=== PATIENT | female | born 1960 | race Caucasian/White ===

== ENCOUNTER 2016-12-18 12:44 | Inpatient (IN) | payer BC, OTHER ==
[~2016-12-18] VITALS: Ht 154.9 cm; Wt 78.3 kg
[2016-12-18 14:30] LABS: BASOPHILS % 0.9 % (0.0-2.0); EOSINOPHILS % 0.1 % (0.0-5.0); HEMATOCRIT. 40.8 % (36.0-48.0); HEMOGLOBIN. 13.8 g/dL (12.0-16.0); LYMPHOCYTES % 26.4 % (20.0-50.0); MEAN CORPUSCULAR VOLUME 80.1 fL (81.0-99.0); MEAN PLATELET VOLUME 8.8 fl (7.4-10.4); MONOCYTES % 5.6 % (2.0-8.0); PLATELET 356 x1000/uL (130-400); RED BLOOD CELL COUNT 5.09 mill/uL (4.2-5.4)
[2016-12-18 14:32] LABS: PROTHROMBIN TIME 10.9 sec (9.4-11.6)
[2016-12-18 14:40] LABS: CARBON DIOXIDE 24 mEq/L (21-32); CHLORIDE 103 mEq/L (98-107); TROPONIN I < 0.02 ng/mL (0.00-0.04)
[2016-12-18 15:12] LABS: HEPATITIS B SURFACE ANTIGEN NEGATIVE
[2016-12-18 15:24] LABS: CLARITY URINE CLEAR (CLEAR); COLOR URINE YELLOW (YELLOW); GLUCOSE URINE NEGATIVE (NEGATIVE); KETONES URINE 2+ (NEGATIVE); LEUKOCYTE ESTERASE URINE NEGATIVE (NEGATIVE); NITRITE URINE NEGATIVE (NEGATIVE); OCCULT BLOOD URINE NEGATIVE (NEGATIVE); PH URINE >=9.0 (4.5-8.0); PROTEIN URINE NEGATIVE (NEGATIVE); SPECIFIC GRAVITY URINE 1.016 (1.005-1.030); UROBILINOGEN URINE 0.2 E.U./dL (0.2-1.0)
[2016-12-18 15:40] LABS: HEPATITIS B CORE AB IGM NEGATIVE
[2016-12-18 15:42] LABS: HEPATITIS A AB IGM NEGATIVE (NEGATIVE)
[2016-12-18 15:53] LABS: *AMPHETAMINES SCREEN URINE NEGATIVE (NEGATIVE); *BARBITURATES SCREEN URINE NEGATIVE (NEGATIVE); *BENZODIAZEPINES SCREEN URINE NEGATIVE (NEGATIVE); *COCAINE SCREEN URINE NEGATIVE (NEGATIVE); CANNABINOID URINE SCREEN NEGATIVE (NEGATIVE); METHADONE URINE SCREEN NEGATIVE (NEGATIVE); OPIATES URINE SCREEN NEGATIVE (NEGATIVE); PHENCYCLIDINE URINE SCREEN NEGATIVE (NEGATIVE)
[2016-12-18] MEDS ORDERED: ASPIRIN 81MG TABLET PO ONE (16:15)
[2016-12-18] MEDS ORDERED: IPRATROPIUM/ALBUTEROL 0.5-3(2.5)MG/3ML NEB HHN ONE (18:00)
[2016-12-18] MEDS ORDERED: SODIUM CHLORIDE 0.9% 1,000 ML IV ONE (19:45)
[2016-12-18] MEDS ORDERED: POTASSIUM CHLORIDE 20MEQ TABLET SR PO SCH (19:45)
[2016-12-18 20:44] VITALS: BP 131/70
[2016-12-18 21:05] LABS: BETA HYDROXYBUTYRATE 0.3 mMol/L (0.0-0.3)
[2016-12-18 21:45] VITALS: BP 131/70
[2016-12-18] MEDS ORDERED: CALCIUM PO (22:38)
[2016-12-18] MEDS ORDERED: CALC0.253 PO (22:38)
[2016-12-18] MEDS ORDERED: OMEP20CA10 PO (22:38)
[2016-12-18] MEDS ORDERED: LEVO100T9 PO (22:38)
[2016-12-18] MEDS ORDERED: NAPR-681 PO (22:38)
[2016-12-18] MEDS ORDERED: DEXTROSE 50% WATER 50ML SYRINGE IV PRN (23:30)
[2016-12-18] MEDS ORDERED: ACETAMINOPHEN 325MG TABLET PO PRN (23:30)
[2016-12-18] MEDS ORDERED: MAGNESIUM/ALUMINUM HYDROXIDE/SIMETHICONE 30ML UDC PO PRN (23:30)
[2016-12-18] MEDS ORDERED: ONDANSETRON HCL 4MG/2ML VIAL IV PRN (23:30)
[2016-12-18] MEDS ORDERED: CLONIDINE 0.1MG TABLET PO PRN (23:30)
[2016-12-18] MEDS ORDERED: IPRATROPIUM/ALBUTEROL 0.5-3(2.5)MG/3ML NEB INH PRN (23:30)
[2016-12-19] VITALS (7 sets, daily range): BP systolic 101–144; BP diastolic 57–68
[2016-12-19] MEDS ORDERED: KCL 20MEQ/100ML PREMIX 100 ML IV NR (01:30)
[2016-12-19] MEDS ORDERED: MAGNESIUM 2 G PREMIX 50 ML IV NR (04:00)
[2016-12-19] MEDS: BLOOD SUGAR DIAGNOSTIC STRIP TEST SCH ×4 (05:50→23:10)
[2016-12-19] MEDS: INSULIN LISPRO 100 UNITS/ML SUBCUT SCH ×4 (08:10→21:00)
[2016-12-19] MEDS: MECLIZINE 25MG TABLET PO SCH ×2 (16:15→23:02)
[2016-12-19] MEDS: PANTOPRAZOLE SODIUM 40 MG/VIAL IV SCH (16:15)
[2016-12-19] MEDS: SODIUM CHLORIDE 0.9% 1,000 ML IV SCH (16:16)
[2016-12-19] MEDS ORDERED: FAMOTIDINE 20MG/2ML VIAL IV SCH (21:00)
[2016-12-20] VITALS: BP 104/64
[2016-12-20] MEDS: SODIUM CHLORIDE 0.9% 1,000 ML IV SCH ×2 (02:24→11:18)
[2016-12-20 04:00] VITALS: BP 106/59
[2016-12-20 06:45] LABS: BASOPHILS % 0.6 % (0.0-2.0); EOSINOPHILS % 3.6 % (0.0-5.0); HEMATOCRIT. 36.6 % (36.0-48.0); HEMOGLOBIN. 12.9 g/dL (12.0-16.0); LYMPHOCYTES % 45.2 % (20.0-50.0); MEAN CORPUSCULAR HEMOGLOBIN 28.3 pg (28.0-32.0); MEAN CORPUSCULAR VOLUME 80.5 fL (81.0-99.0); MEAN PLATELET VOLUME 8.4 fl (7.4-10.4); MONOCYTES % 7.8 % (2.0-8.0); NEUTROPHILS % 42.8 % (40.0-76.0); PLATELET 314 x1000/uL (130-400); RED BLOOD CELL COUNT 4.56 mill/uL (4.2-5.4); RED CELL DISTRIBUTION WIDTH 14.2 % (11.6-14.6)
[2016-12-20] MEDS: BLOOD SUGAR DIAGNOSTIC STRIP TEST SCH ×3 (07:02→17:28)
[2016-12-20] MEDS: INSULIN LISPRO 100 UNITS/ML SUBCUT SCH ×3 (07:29→17:31)
[2016-12-20 07:31] LABS: CARBON DIOXIDE 27 mEq/L (21-32); CHLORIDE 106 mEq/L (98-107)
[2016-12-20] MEDS: MECLIZINE 25MG TABLET PO SCH ×2 (07:36→15:13)
[2016-12-20 08:00] VITALS: BP 128/55
[2016-12-20] MEDS: CALCIUM CARBONATE 1250MG TABLET (500MG ELEMENTAL CALCIUM) PO SCH ×3 (08:19→17:29)
[2016-12-20] MEDS: PANTOPRAZOLE SODIUM 40 MG/VIAL IV SCH (08:19)
[2016-12-20] MEDS ORDERED: POTASSIUM CHLORIDE 20MEQ TABLET SR PO SCH (09:00)
[2016-12-20] MEDS ORDERED: LEVOTHYROXINE SODIUM 100MCG TABLET PO SCH (09:00)
[2016-12-20] MEDS ORDERED: CALCITRIOL 0.25MCG CAPSULE PO SCH (09:00)
[2016-12-20] MEDS ORDERED: GADOBENATE DIMEGLUMINE 529 MG/ML 10ML IV ONE (09:16)
[2016-12-20] MEDS ORDERED: CALCIUM CHLORIDE 1,000 MG in DEXT 5% WATER 90 ML IV SCH (10:00)
[2016-12-20] MEDS ORDERED: MAGNESIUM 2 G PREMIX 50 ML IV SCH (10:00)
[2016-12-20 12:00] VITALS: BP 118/63
[2016-12-20 16:00] VITALS: BP 127/67
[2016-12-20 17:44] VITALS: BP 127/67
[2016-12-21] MEDS ORDERED: PANTOPRAZOLE 40MG DR TABLET PO SCH (07:40)
== END 2016-12-20 18:20 | disposition home or self-care (01) | DRG 149 ==
LOC: ER 12:44 → 7WST 19:11 → ENRESERV 19:24
PROVIDERS: ADMIT Internal Medicine; ATTEND Internal Medicine
DX: R42 Dizziness and giddiness (principal); E87.6 Hypokalemia; M54.12 Radiculopathy, cervical region; E89.0 Postprocedural hypothyroidism; G89.29 Other chronic pain; I10 Essential (primary) hypertension; J44.9 Chronic obstructive pulmonary disease, unspecified; K21.9 Gastro-esophageal reflux disease without esophagitis; M19.90 Unspecified osteoarthritis, unspecified site; M25.519 Pain in unspecified shoulder; Z83.3 Family history of diabetes mellitus; Z98.51 Tubal ligation status
CPT/HCPCS: 36415; 70450; 70553; 71010; 72141; 74176; 80048; 80053; 80305; 81003; 82010; 82533; 82962; 83036; 83520; 83735; 83880; 83970; 84443; 84481; 84484; 85025; 85610; 85651; 86038; 86431; 86705; 86709; 86803; 87040; 87070; 87086; 87340; 87430; 87804; 93005; 93970; 94640; 97116; 97162; 99285; A9577; C9113; J2405; J3475; J3480; J3490; J7030; J7050; J7060; J7620; J8597